=== PATIENT | female | born 1935 | race Caucasian/White ===

== ENCOUNTER 2016-10-04 16:52 | Emergency (ER) | payer MEDICARE, OTHER ==
[2016-10-04 17:29] VITALS: BP 160/90
--- NOTE | 2016-10-04 18:32 | RAD ---
Indication: Constipation. Flat and upright views of the abdomen demonstrates no free air. Air distended colon is noted. No evidence of bowel obstruction is noted. There appears to be fecal impaction in the rectum. No organomegaly is noted. There is evidence of a right ventriculoperitoneal shunt. IMPRESSION: Likely fecal impaction in the rectum.
[2016-10-04 18:42] LABS: Hematocrit 48 % (35-47); Hemoglobin 15.8 g/dl (12.0-16.0); Mean Corpuscular HGB Conc 33 g/dl (31-36); Mean Corpuscular Hemoglobin 29 pg (27-31); Mean Corpuscular Volume 87 fL (80-97); Mean Platelet Volume 12 um3 (7.4-10.4); Red Cell Distribution Width 14 % (10.5-15); White Blood Count 11.8 10^3/ul (3.5-10.8)
[2016-10-04 18:44] LABS: Add Diff/Slide Review? Slide Review Added; Comments Flag Yes
[2016-10-04 18:58] LABS: Albumin 4.3 g/dL (3.2-5.2); BUN/Creatinine Ratio 11.3 (8-20); Calcium 9.8 mg/dL (8.6-10.3); EGFR African American 70.5 (>60); EGFR Non-African American 54.8 (>60); Globulin 2.7 g/dL (2-4); Potassium 3.3 mmol/L (3.5-5.0); Total Bilirubin 0.5 mg/dL (0.2-1.0)
[2016-10-04 19:01] LABS: Troponin I 0.02 ng/mL (<0.04)
[2016-10-04 19:05] LABS: Platelet Morphology Large; RBC Morphology Normal (Normal)
[2016-10-04] MEDS ORDERED: NS 0.9% 1000 ML* 1,000 ML IV ONE (19:06)
[2016-10-04 19:38] LABS: TSH (Thyroid Stimulating Horm) 7.3 mcIU/mL (0.34-5.60)
[2016-10-04 19:58] LABS: Urine Bacteria 1+ (Absent); Urine Bilirubin Negative (Negative); Urine Glucose Negative (Negative); Urine Nitrite Positive (Negative)
[2016-10-04] MEDS ORDERED: Sulfamethoxazole/Trimeth IV(*) 160 MG in D5W 250 ML BAG* 250 ML IVPB ONE (22:00)
[2016-10-04] MEDS ORDERED: Magnesium CITRATE* 300 ML BTL PO ONE (22:45)
--- NOTE | 2016-10-04 22:48 | ED ---
Raad Joseph Alok, scribed for Buck Lantigua MD on 10/04/16 at 1749 . Altered Mental Status - HPI Summary HPI Summary: 81F presents the ED for increased confusion worse than baseline for the past few weeks, especially over the last week. 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 Pt also c/o constipation with abd pain on and off for the past week. Pts last BM was 3 days ago and small. Pt took 2 milkomax and one prune juice today. Pt has also been c/o of dizziness/ Pt is urine incontinent same as baseline. Pt denies abd pain at present and television maintenance man denies any fever. PMHx includes dementia. - History Of Current Complaint Chief Complaint: EDGeneral Stated Complaint: DEMENTIA PT-MORE CONFUSED/DIZZINESS Time Seen by Provider: 10/04/16 17:31 Hx Obtained From: Patient Onset/Duration: Still Present Timing: Constant, Lasting Weeks Severity Initially: Moderate Severity Currently: Moderate Character: Confusion Aggravating Factor(s): Nothing Alleviating Factor(s): Nothing - Allergies/Home Medications Allergies/Adverse Reactions: Allergies Allergy/AdvReac Type Severity Reaction Status Date / Time Amoxicillin [From Augmentin] Allergy Intermediate Hives Verified 09/21/14 11:47 Clavulanic Acid Allergy Intermediate Hives Verified 09/21/14 11:47 [From Augmentin] Ciprofloxacin [From Cipro] Allergy Mild Rash Verified 09/21/14 11:47 PMH/Surg Hx/FS Hx/Imm Hx Endocrine/Hematology History: Reports: Hx Anticoagulant Therapy Denies: Hx Diabetes, Hx Thyroid Disease Cardiovascular History: Reports: Hx Deep Vein Thrombosis, Hx Hypercholesterolemia, Hx Hypotension, Hx Hypertension, Hx Valvular Heart Disease , Other Cardiovascular Problems/Disorders - HEART MURMUR, DVT Denies: Hx Congestive Heart Failure, Hx Pacemaker/ICD Respiratory History: Reports: Hx Sleep Apnea - SHAMIR Denies: Hx Asthma, Hx Chronic Obstructive Pulmonary Disease (COPD) Comment Only: Other Respiratory Problems/Disorders - SLEEP APNEA GI History: Reports: Hx Gastroesophageal Reflux Disease, Other GI Disorders - reported episodes of diarrhea over the past week Denies: Hx Ulcer History: Denies: Hx Renal Disease Musculoskeletal History: Reports: Hx Arthritis, Hx Osteoporosis Comment Only: Hx Rheumatoid Arthritis - ARTHRITIS UNKNOWN TYPE Sensory History: Reports: Hx Contacts or Glasses Opthamlomology History: Reports: Hx Contacts or Glasses Neurological History: Reports: Hx Dementia, Other Neuro Impairments/Disorders - Hx of hydrocephalus Denies: Hx Migraine, Hx Seizures, Hx Transient Ischemic Attacks (TIA) Psychiatric History: Reports: Hx Anxiety, Hx Depression Denies: Hx Eating Disorder, Hx of Violent Episodes Against Others, Hx Substance Abuse - Surgical History Surgery Procedure, Year, and Place: WORD PROCESSOR SHUNT 2002 FOR HYDROCEPHALIS [facility]- PER DR COPE- PROGRAMMABLE SHUNT PER X-RAY SHUNT SERIES IN 2013. WORD PROCESSOR SHUNT REVISION 2004 [facility]. Cataract. Cholecystecomy. Appendectomy Hx Anesthesia Reactions: No Infectious Disease History: No Infectious Disease History: Reports: Hx Shingles - YRS AGO Denies: Hx Hepatitis, Hx Human Immunodeficiency Virus (HIV), Traveled Outside the in Last 30 Days - Social History Alcohol Use: None Substance Use Type: Reports: None Smoking Status (MU): Former Smoker Review of Systems Negative: Fever Positive: Abdominal Pain, Other - constipation Positive: incontinence - urinary (same as baseline) Neurological: Other - Dizziness Positive: Other - confusion (worse than baseline) All Other Systems Reviewed And Are Negative: Yes Physical Exam Triage Information Reviewed: Yes Vital Signs On Initial Exam: Initial Vitals Temp Pulse Resp BP Pulse Ox 97.8 F 80 20 160/90 100 10/04/16 17:25 10/04/16 17:25 10/04/16 17:25 10/04/16 17:25 10/04/16 17:25 Vital Signs Reviewed: Yes Appearance: Positive: Well-Appearing, No Pain Distress Skin: Positive: Warm, Skin Color Reflects Adequate Perfusion, Dry Head/Face: Positive: Normal Head/Face Inspection Eyes: Positive: Normal ENT: Positive: Other - dry mucous membranes Neck: Positive: Supple, Nontender Respiratory/Lung Sounds: Positive: Clear to Auscultation, Breath Sounds Present Cardiovascular: Positive: RRR Abdomen Description: Positive: Nontender, Soft Bowel Sounds: Positive: Hypoactive Musculoskeletal: Positive: Normal Neurological: Positive: Normal Psychiatric: Positive: Normal, Affect/Mood Appropriate Diagnostics - Vital Signs Vital Signs Temp Pulse Resp BP Pulse Ox 10/04/16 17:25 97.8 F 80 20 160/90 100 - Laboratory Lab Results: Lab Results 10/04/16 10/04/16 10/04/16 Range/Units 18:30 18:30 18:30 WBC 11.8 H (3.5-10.8) 10^3/ul RBC 5.50 H (4.0-5.4) 10^6/ul Hgb 15.8 (12.0-16.0) g/dl Hct 48 H (35-47) % MCV 87 (80-97) fL MCH 29 (27-31) pg MCHC 33 (31-36) g/dl RDW 14 (10.5-15) % Plt Count 118 L (150-450) 10^3/ul MPV 12 H (7.4-10.4) um3 Neut % (Auto) 71.4 (38-83) % Lymph % (Auto) 18.5 L (25-47) % [place] % (Auto) 6.6 (1-9) % Eos % (Auto) 2.1 (0-6) % Baso % (Auto) 1.4 (0-2) % Absolute Neuts (auto) 8.4 H (1.5-7.7) 10^3/ul Absolute Lymphs (auto) 2.2 (1.0-4.8) 10^3/ul Absolute Monos (auto) 0.8 (0-0.8) 10^3/ul Absolute Eos (auto) 0.2 (0-0.6) 10^3/ul Absolute Basos (auto) 0.2 (0-0.2) 10^3/ul Absolute Nucleated RBC 0.01 10^3/ul Nucleated RBC % 0.1 Platelet Morphology Large Normal RBC Morphology Normal (Normal) Sodium 140 (133-145) mmol/L Potassium 3.3 L (3.5-5.0) mmol/L Chloride 104 (101-111) mmol/L Carbon Dioxide 25 (22-32) mmol/L Anion Gap 11 (2-11) mmol/L BUN 11 (6-24) mg/dL Creatinine 0.97 H (0.51-0.95) mg/dL Est GFR ( Amer) 70.5 (>60) Est GFR (Non-Af Amer) 54.8 (>60) BUN/Creatinine Ratio 11.3 (8-20) Glucose 150 H (70-100) mg/dL Lactic Acid 2.9 H* (0.5-2.0) mmol/L Calcium 9.8 (8.6-10.3) mg/dL Total Bilirubin 0.50 (0.2-1.0) mg/dL AST 52 H (13-39) U/L ALT 49 (7-52) U/L Alkaline Phosphatase 46 (34-104) U/L Troponin I 0.02 (<0.04) ng/mL Total Protein 7.0 (6.4-8.9) g/dL Albumin 4.3 (3.2-5.2) g/dL Globulin 2.7 (2-4) g/dL Albumin/Globulin Ratio 1.6 (1-3) TSH 7.30 H (0.34-5.60) mcIU/mL Urine Color Urine Appearance Urine pH (5-9) Ur Specific [place] (1.010-1.030) Urine Protein (Negative) Urine Ketones (Negative) Urine Blood (Negative) Urine Nitrate (Negative) Urine Bilirubin (Negative) Urine Urobilinogen (Negative) Ur Leukocyte Esterase (Negative) Urine WBC (Auto) (Absent) Urine RBC (Auto) (Absent) Urine Bacteria (Absent) Urine Glucose (Negative) Urine Ascorbic Acid (Negative) 10/04/16 Range/Units 19:42 WBC (3.5-10.8) 10^3/ul RBC (4.0-5.4) 10^6/ul Hgb (12.0-16.0) g/dl Hct (35-47) % MCV (80-97) fL MCH (27-31) pg MCHC (31-36) g/dl RDW (10.5-15) % Plt Count (150-450) 10^3/ul MPV (7.4-10.4) um3 Neut % (Auto) (38-83) % Lymph % (Auto) (25-47) % [place] % (Auto) (1-9) % Eos % (Auto) (0-6) % Baso % (Auto) (0-2) % Absolute Neuts (auto) (1.5-7.7) 10^3/ul Absolute Lymphs (auto) (1.0-4.8) 10^3/ul Absolute Monos (auto) (0-0.8) 10^3/ul Absolute Eos (auto) (0-0.6) 10^3/ul Absolute Basos (auto) (0-0.2) 10^3/ul Absolute Nucleated RBC 10^3/ul Nucleated RBC % Platelet Morphology Normal RBC Morphology (Normal) Sodium (133-145) mmol/L Potassium (3.5-5.0) mmol/L Chloride (101-111) mmol/L Carbon Dioxide (22-32) mmol/L Anion Gap (2-11) mmol/L BUN (6-24) mg/dL Creatinine (0.51-0.95) mg/dL Est GFR ( Amer) (>60) Est GFR (Non-Af Amer) (>60) BUN/Creatinine Ratio (8-20) Glucose (70-100) mg/dL Lactic Acid (0.5-2.0) mmol/L Calcium (8.6-10.3) mg/dL Total Bilirubin (0.2-1.0) mg/dL AST (13-39) U/L ALT (7-52) U/L Alkaline Phosphatase (34-104) U/L Troponin I (<0.04) ng/mL Total Protein (6.4-8.9) g/dL Albumin (3.2-5.2) g/dL Globulin (2-4) g/dL Albumin/Globulin Ratio (1-3) TSH (0.34-5.60) mcIU/mL Urine Color Yellow Urine Appearance Cloudy Urine pH 7.0 (5-9) Ur Specific [place] 1.018 (1.010-1.030) Urine Protein Negative (Negative) Urine Ketones Negative (Negative) Urine Blood Negative (Negative) Urine Nitrate Positive H (Negative) Urine Bilirubin Negative (Negative) Urine Urobilinogen Negative (Negative) Ur Leukocyte Esterase 1+ H (Negative) Urine WBC (Auto) 3+(>20/hpf) H (Absent) Urine RBC (Auto) 2+(6-10/hpf) H (Absent) Urine Bacteria 1+ H (Absent) Urine Glucose Negative (Negative) Urine Ascorbic Acid * H (Negative) Result Diagrams: 10/04/16 18:30 10/04/16 18:30 Lab Statement: Any lab studies that have been ordered have been reviewed, and results considered in the medical decision making process. - Radiology Abd XRAY Xray Interpretation: Positive (See Comments) - IMPRESSION: Likely fecal impaction in the rectum. Radiology Interpretation Completed By: Radiologist - EKG 1942 Cardiac Rate: NL - 82 bpm EKG Rhythm: Sinus Rhythm Altered Mental Statu Course/Dx - Course Course Of Treatment: Ms. Juarez has been more confused in the last two weeks and is also constipated. She was found to have a UTI and is being treated for that with IV antibiotics and will be given a prescription and some Mag citrate to move her bowels. - Diagnoses Discharge Diagnoses: Constipation, UTI (urinary tract infection) Discharge - Discharge Plan Condition: Stable Disposition: HOME Prescriptions: Nitrofurantoin Monohyd Macro [Macrobid] 100 mg PO BID #10 cap Patient Education Materials: Urinary Tract Infection in Women (ED) Referrals: Antonette Beck MD [Primary Care Provider] - The documentation as recorded by the Raad clay Alok accurately reflects the service I personally performed and the decisions made by me, Buck Lantigua MD.
--- NOTE | 2016-10-06 09:39 | ED ---
Progress - Progress Note Progress Note: Pt's urine cx reveals e. coli 100,000 - started on macrobid. Will await sens. No change at this time. Course/Dx - Course Course Of Treatment: Ms. Juarez has been more confused in the last two weeks and is also constipated. She was found to have a UTI and is being treated for that with IV antibiotics and will be given a prescription and some Mag citrate to move her bowels. - Diagnoses Provider Diagnoses: Constipation, UTI (urinary tract infection)
--- NOTE | 2016-10-07 14:32 | PN ---
Progress Note - Progress Note Date of Service: 10/04/16 Note: Patient was treated with Macrobid due to preliminary culture results showing > 100,00 of e coli. Final culture results show susceptibility to Macrobid. No further change or treatment needed at this time.
== END 2016-10-05 00:53 | disposition home or self-care (01) ==
LOC: ED 16:52
DX: N39.0 Urinary tract infection, site not specified (principal); K59.00 Constipation, unspecified; M06.9 Rheumatoid arthritis, unspecified; K21.9 Gastro-esophageal reflux disease without esophagitis; M81.0 Age-related osteoporosis without current pathological fracture; F03.90 Unspecified dementia, unspecified severity, without behavioral disturbance, psychotic disturbance, mood disturbance, and anxiety; Z79.01 Long term (current) use of anticoagulants; B96.20 Unspecified Escherichia coli [E. coli] as the cause of diseases classified elsewhere; Z86.718 Personal history of other venous thrombosis and embolism; F32.9 Major depressive disorder, single episode, unspecified; Z87.891 Personal history of nicotine dependence
CPT/HCPCS: 36415; 74000; 80053; 81003; 81015; 83605; 84443; 84484; 85025; 87077; 87086; 87186; 93005; 96360; 96374; 99283; A9270-GY

== ENCOUNTER → 2016-12-24 12:54 | Emergency (ER) | payer MEDICARE, OTHER ==
[~2016-12-24 12:54] MED LIST: NS 0.9% 1000 ML* 1,000 ML IV ONE; Potassium Chlor TAB* 20 MEQ TAB.ER PO ONE
[2016-12-24 13:05] VITALS: BP 161/110
--- NOTE | 2016-12-24 14:33 | RAD ---
HISTORY: The iris pain COMPARISONS: December 23, 2010 TECHNIQUE: Multiple transverse and longitudinal ultrasound images were obtained of the left lower extremity from the level of the common femoral vein inferiorly through to the infrapopliteal veins using grayscale, color Doppler, and spectral Doppler imaging with and without compression and with augmentation. Comparison images were obtained of the contralateral common femoral vein. FINDINGS: VEINS: There is linear echogenic material consistent with chronic recanalized thrombus within the left common femoral vein, profunda femoris, femoral vein, and popliteal vein, persistent but improved when compared to December 23, 2010. Similar findings are noted within the greater saphenous vein.. There are no findings to suggest acute deep vein thrombosis. SOFT TISSUES: Unremarkable. OTHER FINDINGS: None. 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
[2016-12-24 15:52] LABS: Hematocrit 46 % (35-47); Hemoglobin 15.1 g/dl (12.0-16.0); Mean Corpuscular HGB Conc 33 g/dl (31-36); Mean Corpuscular Hemoglobin 29 pg (27-31); Mean Corpuscular Volume 87 fL (80-97); Red Blood Count 5.27 10^6/ul (4.0-5.4); Red Cell Distribution Width 15 % (10.5-15); White Blood Count 9.4 10^3/ul (3.5-10.8)
[2016-12-24 15:53] LABS: Add Diff/Slide Review? Slide Review Added; Comments Flag Yes
[2016-12-24 16:06] LABS: ALT 51 U/L (7-52); Albumin 4.2 g/dL (3.2-5.2); Alkaline Phosphatase 39 U/L (34-104); BUN/Creatinine Ratio 9.1 (8-20); Blood Urea Nitrogen 9 mg/dL (6-24); C Reactive Protein 8.71 mg/L (< 5.00); CO2 Carbon Dioxide 28 mmol/L (22-32); Calcium 9.5 mg/dL (8.6-10.3); Chloride 103 mmol/L (101-111); EGFR African American 68.9 (>60); EGFR Non-African American 53.6 (>60); Globulin 2.8 g/dL (2-4); Glucose 104 mg/dL (70-100); Lipase < 10 U/L (11.0-82.0); Sodium 140 mmol/L (133-145)
[2016-12-24 16:11] LABS: Anion Gap 9 mmol/L (2-11)
[2016-12-24 16:34] LABS: Mean Platelet Volume 11 um3 (7.4-10.4)
--- NOTE | 2016-12-24 16:35 | RAD ---
INDICATION: Pain left groin. COMPARISON: Comparison is made with a prior CT of the abdomen and pelvis from January 23, 2013. TECHNIQUE: A CT scan of the abdomen and pelvis was performed without intravenous or oral contrast. Contiguous axial sections were obtained from the lung bases through the symphysis pubis. Images were reconstructed in the coronal and sagittal planes. FINDINGS: There is mild dependent bilateral lower lobe subsegmental atelectasis. No pleural effusion is present. The liver and spleen are normal in size. The liver is decreased in attenuation consistent with fatty infiltration. No significant focal hepatic abnormality is seen on this noncontrast study. The patient is status post cholecystectomy. There is fatty infiltration of the pancreas which otherwise appears unremarkable. The adrenal glands appear within normal limits. The kidneys appear slightly small in size. No hydronephrosis is seen. No renal calculi are noted. There is a cyst arising from the superior pole of the left kidney measuring 4.8 cm in size. The aorta is normal in caliber with moderate calcific plaque present. No significant enlarged retroperitoneal lymph nodes are seen. The stomach, small and large bowel appear nondistended. The patient is status post appendectomy by history. There is moderate sigmoid diverticulosis. There is no evidence for diverticulitis or colitis. There is a small periumbilical hernia containing fat. The distal portion of a ventricular peritoneal shunt catheter is noted in the right lower quadrant. The uterus is anteverted with areas of calcification suggestive of fibroids. There is a small amount of free intraperitoneal fluid present in the dependent portion of the pelvis. No free intraperitoneal air is seen. There is grade II anterior spondylolisthesis at the L5-S1 level. There are chronic compression fractures of the T10 and T11 vertebral bodies. IMPRESSION: 1. SMALL AMOUNT OF FREE INTRAPERITONEAL FLUID IN THE PELVIS. 2. HEPATIC STEATOSIS.
[2016-12-24 17:21] LABS: Troponin I 0.02 ng/mL (<0.04)
--- NOTE | 2016-12-24 18:22 | ED ---
Sofia Joseph Thomas, scribed for Ernie Oropeza MD on 12/24/16 at 1321 . Abdominal Pain/Female - HPI Summary HPI Summary: The pt is a 81 y/o F BIBA and c/o L-sided groin pain that began this AM. The pain is constant. The pain is rated 2/10. It does not radiate. The pain is aggravated by going over bumps in the ambulance. It is alleviated by internal rotation of her left foot. The patient has treated the pain with nothing [employer]. Pt denies constipation and urinary symptoms. She denies any falls in the last month. She reports prior episodes of this pain the past that spontaneously resolved. PMHx: HTN, DVT, dementia. PSHx: foot surgery, appendectomy. SHx: no smoking, no drinking. FHx: DM. - History of Current Complaint Chief Complaint: EDExtremityLower Stated Complaint: GROIN PAIN Time Seen by Provider: 12/24/16 13:05 Hx Obtained From: Patient Onset/Duration: Lasting Hours - pain with onset this AM, Still Present Timing: Constant Severity Currently: Moderate Pain Intensity: 0 Pain Scale Used: 0-10 Numeric Location: Groin - L-sided Radiates: No Aggravating Factor(s): Other: - Bumps in the ambulance Alleviating Factor(s): Other: - Internal rotation of left foot Associated Signs and Symptoms: Negative: Constipation, Urinary Symptoms Allergies/Adverse Reactions: Allergies Allergy/AdvReac Type Severity Reaction Status Date / Time Amoxicillin [From Augmentin] Allergy Intermediate Hives Verified 09/21/14 11:47 Clavulanic Acid Allergy Intermediate Hives Verified 09/21/14 11:47 [From Augmentin] Ciprofloxacin [From Cipro] Allergy Mild Rash Verified 09/21/14 11:47 PMH/Surg Hx/FS Hx/Imm Hx Previously Healthy: No Endocrine/Hematology History: Reports: Hx Anticoagulant Therapy Denies: Hx Diabetes, Hx Thyroid Disease Cardiovascular History: Reports: Hx Deep Vein Thrombosis, Hx Hypercholesterolemia, Hx Hypotension, Hx Hypertension, Hx Valvular Heart Disease , Other Cardiovascular Problems/Disorders - HEART MURMUR, DVT Denies: Hx Congestive Heart Failure, Hx Pacemaker/ICD Respiratory History: Reports: Hx Sleep Apnea - SHAMIR Denies: Hx Asthma, Hx Chronic Obstructive Pulmonary Disease (COPD) Comment Only: Other Respiratory Problems/Disorders - SLEEP APNEA GI History: Reports: Hx Gastroesophageal Reflux Disease, Other GI Disorders - reported episodes of diarrhea over the past week Denies: Hx Ulcer History: Denies: Hx Renal Disease Musculoskeletal History: Reports: Hx Arthritis, Hx Osteoporosis Comment Only: Hx Rheumatoid Arthritis - ARTHRITIS UNKNOWN TYPE Sensory History: Reports: Hx Contacts or Glasses Opthamlomology History: Reports: Hx Contacts or Glasses Neurological History: Reports: Hx Dementia, Other Neuro Impairments/Disorders - Hx of hydrocephalus Denies: Hx Migraine, Hx Seizures, Hx Transient Ischemic Attacks (TIA) Psychiatric History: Reports: Hx Anxiety, Hx Depression Denies: Hx Eating Disorder, Hx of Violent Episodes Against Others, Hx Substance Abuse - Surgical History Surgery Procedure, Year, and Place: 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 HEAD OF COMMISSION DEPARTMENT SHUNT REVISION 2004 [facility]. Cataract. Cholecystecomy. Appendectomy Hx Anesthesia Reactions: No Infectious Disease History: No Infectious Disease History: Reports: Hx Shingles - YRS AGO Denies: Hx Hepatitis, Hx Human Immunodeficiency Virus (HIV), Traveled Outside the in Last 30 Days - Family History Known Family History: Positive: Hypertension - Social History Alcohol Use: None Substance Use Type: Reports: None Smoking Status (MU): Former Smoker Review of Systems Negative: Fever Positive: Other - L-sided groin pain onset this AM; NEGATIVE: constipation Positive: no symptoms reported All Other Systems Reviewed And Are Negative: Yes Physical Exam Triage Information Reviewed: Yes Vital Signs On Initial Exam: Initial Vitals Temp Pulse Resp BP Pulse Ox 96.6 F 74 13 161/110 100 12/24/16 13:00 12/24/16 13:00 12/24/16 13:00 12/24/16 13:00 12/24/16 13:00 Vital Signs Reviewed: Yes Appearance: Positive: Well-Appearing, No Pain Distress Skin: Positive: Skin Color Reflects Adequate Perfusion Head/Face: Positive: Normal Head/Face Inspection Eyes: Positive: EOMI ENT: Positive: Normal ENT inspection Neck: Positive: Nontender Respiratory/Lung Sounds: Positive: Clear to Auscultation, Breath Sounds Present Cardiovascular: Positive: RRR. Negative: Murmur Abdomen Description: Positive: Nontender, Other: - no hernia, no mass, notenderness left or right groin area. No redness, no mass.. Negative: Distended Bowel Sounds: Positive: Present Musculoskeletal: Positive: Strength/ROM Intact Neurological: Positive: Sensory/Motor Intact, Alert, Oriented to Person Place, Time, CN Intact II-III Psychiatric: Positive: Normal - [place] Coma Scale Best Eye Response: 4 - Spontaneous Best Motor Response: 6 - Obeys Commands Best Verbal Response: 5 - Oriented Diagnostics - Vital Signs Vital Signs Temp Pulse Resp BP Pulse Ox 12/24/16 13:00 96.6 F 74 13 161/110 100 - Laboratory Result Diagrams: 12/24/16 15:35 12/24/16 15:35 Lab Statement: Any lab studies that have been ordered have been reviewed, and results considered in the medical decision making process. - CT CT Abd/Pel CT Interpretation: No Acute Changes - CT Abd/Pel shows 1. SMALL AMOUNT OF FREE INTRAPERITONEAL FLUID IN THE PELVIS. 2. HEPATIC STEATOSIS. ED Physician has read this report and agrees. CT Interpretation Completed By: Radiologist - EKG 14:14 Cardiac Rate: NL - 69 BPM EKG Interpretation: No STEMI. - Additional Comments Diagnostic Additional Comments: US LLE. Interpreted by radiologist. 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 ED Physician has read this report and agrees. Re-Evaluation - Re-Evaluation First Eval Re-Evaluation Time: 15:01 Change: Unchanged Comment: Patient refuses all lab draws, drinking contrast, ivs, iv contrast. She seems alert and rational and able to make decisions at this point. Will get CT without contrast. she overall does not seem to be uncomfortable or in distress. Second Eval Re-Evaluation Time: 18:13 Change: Improved Comment: she states she is comfortable and would like to go home. Abdominal Pain Fem Course/Dx - Course Course Of Treatment: The pt is a 81 y/o F BIBA and c/o L-sided groin pain that began this AM. Pt denies constipation, urinary symptoms, or any falls in the last month. Bloodwork was obtained and it shows CRP 8.71. EKG shows no STEMI. 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 CT Abd/Pel shows 1. SMALL AMOUNT OF FREE INTRAPERITONEAL FLUID IN THE PELVIS. 2. HEPATIC STEATOSIS. ED Physician has read this report and agrees. Her work up is unremakable for acute findings and her exam unremarkable. DC to home good condition. - Diagnoses Provider Diagnoses: Left groin pain, Hypertension Discharge - Discharge Plan Condition: Good Disposition: HOME Patient Education Materials: Abdominal Pain (ED), Groin Pain (ED), Hypertension (ED) Referrals: Antonette Beck MD [Primary Care Provider] - The documentation as recorded by the Sofia clay Thomas accurately reflects the service I personally performed and the decisions made by , Ernie Oropeza MD.
== END | disposition home or self-care (01) ==
LOC: ED 12:54
DX: R10.32 Left lower quadrant pain (principal); I10 Essential (primary) hypertension; Z86.718 Personal history of other venous thrombosis and embolism; Z79.01 Long term (current) use of anticoagulants; E78.00 Pure hypercholesterolemia, unspecified; M06.9 Rheumatoid arthritis, unspecified; Z87.891 Personal history of nicotine dependence
CPT/HCPCS: 36415; 74176; 80053; 83605; 83690; 84484; 85025; 85610; 86140; 87040; 93005; 96360; 99283

== ENCOUNTER → 2016-12-26 08:19 | Emergency (ER) | payer MEDICARE, OTHER ==
[~2016-12-26 08:19] MED LIST changes: +Lidocaine PATCH 5%* 1 PATCH ONE; +Lidocaine PATCH 5%* 1 PATCH TRANSDERM SCH; +Lidocaine Patch REMOVE* 1 NOTE MISC SCH; -NS 0.9% 1000 ML* 1,000 ML IV ONE; -Potassium Chlor TAB* 20 MEQ TAB.ER PO ONE
--- NOTE | 2016-12-26 10:02 | ED ---
Lower Extremity - HPI Summary HPI Summary: Pt here w/ Lt knee pain since yesterday, last night. Feels mostly over medial aspect. Constant, aching. Has tried "copious amounts of tylenol" w/o relief. Worse w/ movement and touch over affected area. 2 days ago was here w/ similar issues - reported groin pain and LE pain. No c/o swelling or distal pain beyond knee. Had U/S neg for acute DVT (has chronic findings) as well as CT ab/pelvis neg for acute pathology. Denies numbness, tingling, weakness, coolness of extremity, fever, chills, N/V, diarrhea, CP, SOB, BERNABE, visual change. She is eating and drinking well. Pt denies h/o gout, arthritis - chart indicates arthritis. PCP called - pt was seen in her office after being seen here 2 days ago. She was started on amlodipine for BP which continues to be elevated today however pt is asx. Her BP also lowers when she relaxes. PCP also reports pt has advanced dementia, poor historian and low pain threshold (nurse confirms pt was crying in pain w/ BP assessment yesterday - this was fine for pt today). PCP started pt on macrobid for possible early diverticulitis (note: CT scan reveals diverticulosis w/o -itits. Pt allergic to augmentin and cipro). PCP also confirms med list including: *xarelto 15mg daily *donepezil *memantine *quetiapine *omperazole *venlafaxine *Vit D *Alprazolam (PRN) *acetaminophen (PRN) - History of Current Complaint Chief Complaint: EDExtremityLower Stated Complaint: LEFT LEG PAIN Time Seen by Provider: 12/26/16 09:33 Hx Obtained From: Patient, Family/Stator Plate Washer - PCP Pain Intensity: 9 - Allergies/Home Medications Allergies/Adverse Reactions: Allergies Allergy/AdvReac Type Severity Reaction Status Date / Time Amoxicillin [From Augmentin] Allergy Intermediate Hives Verified 09/21/14 11:47 Clavulanic Acid Allergy Intermediate Hives Verified 09/21/14 11:47 [From Augmentin] Ciprofloxacin [From Cipro] Allergy Mild Rash Verified 09/21/14 11:47 Home Medications: Home Medications Acetaminophen TAB* [Tylenol TAB*] 650 mg PO Q4H PRN 12/26/16 [History Confirmed 12/26/16] Alprazolam 0.25 mg PO BID 12/26/16 [History Confirmed 12/26/16] Amlodipine Besylate [Norvasc 5 mg tab] 5 mg PO DAILY 12/26/16 [History Confirmed 12/26/16] Cholecalciferol [Vitamin D] 1,000 unit PO DAILY 12/26/16 [History Confirmed 10/05] Omeprazole 40 mg PO DAILY 12/26/16 [History Confirmed 12/26/16] QUEtiapine TAB* [SEROquel TAB*] 25 mg PO DAILY PRN 12/26/16 [History Confirmed 12/26/16] Rivaroxaban TAB(*) [Xarelto 15 mg(*)] 15 mg PO DAILY 12/26/16 [History Confirmed 12/26/16] Senna TAB* [Senokot TAB*] 1 tab PO DAILY 12/26/16 [History Confirmed 12/26/16] PMH/Surg Hx/FS Hx/Imm Hx Previously Healthy: Yes Endocrine/Hematology History: Reports: Hx Anticoagulant Therapy - xarelto Denies: Hx Diabetes, Hx Thyroid Disease Cardiovascular History: Reports: Hx Deep Vein Thrombosis, Hx Hypercholesterolemia, Hx Hypotension, Hx Hypertension - amlodipine, Hx Valvular Heart Disease, Other Cardiovascular Problems/Disorders - HEART MURMUR Denies: Hx Congestive Heart Failure, Hx Pacemaker/ICD Respiratory History: Reports: Hx Sleep Apnea - SHAMIR Denies: Hx Asthma, Hx Chronic Obstructive Pulmonary Disease (COPD) GI History: Reports: Hx Gastroesophageal Reflux Disease - omeprazole, Other GI Disorders - h/o diarrhea Denies: Hx Ulcer History: Denies: Hx Renal Disease Musculoskeletal History: Reports: Hx Arthritis, Hx Osteoporosis Sensory History: Reports: Hx Contacts or Glasses Opthamlomology History: Reports: Hx Contacts or Glasses Neurological History: Reports: Hx Dementia, Other Neuro Impairments/Disorders - Hx of hydrocephalus Denies: Hx Migraine, Hx Seizures, Hx Transient Ischemic Attacks (TIA) Psychiatric History: Reports: Hx Anxiety, Hx Depression - on meds Denies: Hx Eating Disorder, Hx of Violent Episodes Against Others, Hx Substance Abuse - Surgical History Surgery Procedure, Year, and Place: REGISTERED NURSE CARDIOVASCULAR ICU SHUNT 2002 FOR HYDROCEPHALIS [facility]- PER DR COPE- PROGRAMMABLE SHUNT PER X-RAY SHUNT SERIES IN 2013. REGISTERED NURSE CARDIOVASCULAR ICU SHUNT REVISION 2004 [facility]. Cataract. Cholecystecomy. Appendectomy Hx Anesthesia Reactions: No Infectious Disease History: Yes Infectious Disease History: Reports: Hx Shingles - YRS AGO Denies: Hx Hepatitis, Hx Human Immunodeficiency Virus (HIV), Traveled Outside the [place] in Last 30 Days - Family History Known Family History: Positive: Hypertension - Social History Occupation: Retired [facility]: [facility] Alcohol Use: None Hx Substance Use: No Substance Use Type: Reports: None Hx Tobacco Use: Yes Smoking Status (MU): Former Smoker Review of Systems Constitutional: Negative Negative: Fever, Chills, Fatigue Eyes: Negative Negative: Photophobia, Blurred Vision, Diplopia ENT: Negative Cardiovascular: Negative Negative: Palpitations, Chest Pain Respiratory: Negative Negative: Shortness Of Breath, Cough Gastrointestinal: Negative Negative: Abdominal Pain, Vomiting, Diarrhea, Nausea Negative: burning, dysuria, discharge, frequency, flank pain Musculoskeletal: Other - see HPI Skin: Negative Neurological: Negative Psychological: Normal All Other Systems Reviewed And Are Negative: Yes Physical Exam Triage Information Reviewed: Yes Vital Signs On Initial Exam: Initial Vitals Temp Pulse Resp BP Pulse Ox 97.2 F 74 15 154/89 99 12/26/16 08:20 12/26/16 08:20 12/26/16 08:20 12/26/16 08:20 12/26/16 08:20 Vital Signs Reviewed: Yes Appearance: Positive: Well-Appearing, No Pain Distress - lying on stretcher w/ Lt knee flexed and Lt hip in frog position, Well-Nourished Skin: Positive: Warm, Dry - mild erythema of Lt anterior tibial region compared to Rt (appears to be superficial capillary changes) - no fever to touch, no edema Eyes: Positive: EOMI ENT: Positive: Hearing grossly normal. Negative: Pharynx normal - oral mucosa dry, Nasal congestion, Nasal drainage Respiratory/Lung Sounds: Positive: Clear to Auscultation, Breath Sounds Present. Negative: Rales, Rhonchi, Stridor, Wheezes Cardiovascular: Positive: RRR, Pulses are Symmetrical in both Upper and Lower Extremities, Murmur, Other - no bruit appreciated upon ab auscultation, no palpable ab mass nor pulsatile mass observed; femoral pulses +2 equal B/L, S1 - murmur, S2. Negative: Leg Edema Left - (-) Néstor's, Leg Edema Right Abdomen Description: Positive: Nontender, No Organomegaly, Soft, Other: - groin NTTP. Negative: Pulsatile Mass Bowel Sounds: Positive: Present Musculoskeletal: Positive: Strength/ROM Intact, Pain @ - Lt knee flexion but is able to do so; TTP over Lt pes anserine Neurological: Positive: Normal, Sensory/Motor Intact, CN Intact II-III Psychiatric: Positive: Normal - pleasant, calm, cooperative; appears to be responding appropriately to stimuli; organized thoughts - [place] Coma Scale Coma Scale Total: 14 Diagnostics - Vital Signs Vital Signs Temp Pulse Resp BP Pulse Ox 12/26/16 09:30 178/149 12/26/16 09:26 79 97 12/26/16 09:08 148/52 12/26/16 09:00 75 99 12/26/16 08:30 68 223/85 99 12/26/16 08:26 72 97 12/26/16 08:25 154/89 12/26/16 08:20 97.2 F 74 15 154/89 99 - Laboratory Lab Statement: Any lab studies that have been ordered have been reviewed, and results considered in the medical decision making process. Lower Extremity Course/Dx - Course Course Of Treatment: Pt presents w/ Lt knee pain - focal area of point tenderness over pes anserine. Mild TTP over medial, proximal calf up bordering popliteal space - U/S unchanged chronic DVT findings from 12/24 - clinical findings low for acute DVT as well. XR reveals OA and osteopenia - suspect OA flair vs. pes anserine pain/inflammation. Advise NSAID's w/ food for pain and f/ u w/ PCP. NOTE: advise continued monitoring of BP. - Diagnoses Differential Diagnosis/HQI/PQRI: Positive: Arthritis, Bursitis, Dislocation, DVT , Fracture (Closed), Sprain, Strain, Tendonitis Provider Diagnoses: Left knee pain, Osteoarthritis of left knee Discharge - Discharge Plan Condition: Stable Disposition: HOME Patient Education Materials: Osteoarthritis (ED), Knee Pain (ED) Referrals: Antonette Beck MD [Primary Care Provider] - Additional Instructions: Rest, ice alternating with heat, elevation, NSAID's with food for pain Follow-up with PCP this week if pain persists. *If you develop chest pain, shortness of breath, fever, vomiting, joint swelling , calf swelling, abnormal bleeding, return to ED
[2016-12-26 10:05] VITALS: BP 184/67
--- NOTE | 2016-12-26 10:52 | RAD ---
HISTORY: Left medial knee pain COMPARISONS: March 21, 2014 VIEWS: 4, Frontal, lateral, axial, and oblique views of the left knee FINDINGS: BONE DENSITY: There is diffuse osteopenia. BONES: There is no displaced fracture. JOINTS: There is moderate tricompartmental osteoarthritis. There is no suprapatellar joint effusion or lipohemarthrosis. ALIGNMENT: There is no dislocation. SOFT TISSUES: Unremarkable. OTHER FINDINGS: None. IMPRESSION: OSTEOPENIA. OSTEOARTHRITIS. NO ACUTE OSSEOUS INJURY. IF SYMPTOMS PERSIST, RECOMMEND REPEAT IMAGING.
--- NOTE | 2016-12-26 10:57 | RAD ---
HISTORY: Left groin pain COMPARISONS: September 21, 2014 VIEWS: 3, Frontal view of the pelvis with frontal and frog-leg views of the left hip FINDINGS: BONE DENSITY: There is diffuse osteopenia. BONES: The patient is status post internal fixation of the left femoral neck. There is no hardware failure or osteolysis. There is no displaced fracture.. JOINTS: There is moderate osteoporosis of the hips bilaterally. ALIGNMENT: There is no dislocation. SOFT TISSUES: Unremarkable. OTHER FINDINGS: A SCREEN TENDER HELPER shunt tubing tip is noted. IMPRESSION: 1. OSTEOPENIA. 2. OSTEOARTHRITIS. 3. STATUS POST INTERNAL FIXATION OF LEFT FEMUR. 4. NO ACUTE OSSEOUS INJURY. IF SYMPTOMS PERSIST, RECOMMEND REPEAT IMAGING
--- NOTE | 2016-12-26 11:59 | RAD ---
HISTORY: Left lower extremity pain COMPARISONS: December 24, 2016 TECHNIQUE: Multiple transverse and longitudinal ultrasound images were obtained of the left lower extremity from the level of the common femoral vein inferiorly through to the infrapopliteal veins using grayscale, color Doppler, and spectral Doppler imaging with and without compression and with augmentation. Comparison images were obtained of the contralateral common femoral vein. FINDINGS: VEINS: Again noted is chronic appearing nonocclusive thrombus within the left common femoral vein, profunda femoris vein, femoral vein, and popliteal vein, and with the greater saphenous vein. SOFT TISSUES: Unremarkable. OTHER FINDINGS: None. IMPRESSION: AGAIN NOTED IS CHRONIC APPEARING NONOCCLUSIVE THROMBUS OF THE LEFT LOWER EXTREMITY SIMILAR TO DECEMBER 24, 2016
== END | disposition home or self-care (01) ==
LOC: ED 08:19
DX: M25.562 Pain in left knee (principal); M17.12 Unilateral primary osteoarthritis, left knee; Z79.01 Long term (current) use of anticoagulants; Z87.891 Personal history of nicotine dependence
CPT/HCPCS: 99284; A9270-GY

== ENCOUNTER 2017-09-23 08:31 | Emergency (ER) | payer MEDICARE, OTHER ==
[2017-09-23] MEDS ORDERED: traMADol TAB* 50 MG PO ONE (08:49)
--- NOTE | 2017-09-23 09:30 | RAD ---
HISTORY: hip pain with groin COMPARISONS: December 26, 2016 VIEWS: 3, Frontal view of the pelvis with frontal and frog-leg views of the left hip FINDINGS: BONE DENSITY: There is diffuse osteopenia. BONES: The patient is status post internal fixation of the proximal left femur. There is no hardware failure or osteolysis. JOINTS: There is moderate osteoarthritis of the hips bilaterally. ALIGNMENT: There is no dislocation. SOFT TISSUES: Unremarkable. OTHER FINDINGS: Degenerative changes noted of the spine. SPRAY GUN STRIPER shunt tubing is noted in the right lower quadrant. IMPRESSION: 1. STATUS POST INTERNAL FIXATION OF THE PROXIMAL LEFT FEMUR. 2. OSTEOARTHRITIS. 3. NO ACUTE OSSEOUS INJURY. IF SYMPTOMS PERSIST, RECOMMEND REPEAT IMAGING
--- NOTE | 2017-09-23 09:46 | RAD ---
HISTORY: pain in l calf COMPARISONS: December 26, 2016 TECHNIQUE: Multiple transverse and longitudinal ultrasound images were obtained of the left lower extremity from the level of the common femoral vein inferiorly through to the infrapopliteal veins using grayscale, color Doppler, and spectral Doppler imaging with and without compression and with augmentation. Comparison images were obtained of the contralateral common femoral vein. FINDINGS: VEINS: Again noted is chronic appearing nonocclusive thrombus within the common femoral vein extending inferiorly through to the popliteal vein, similar to the previous examination. SOFT TISSUES: Unremarkable. OTHER FINDINGS: None. IMPRESSION: STABLE CHRONIC APPEARING NONOCCLUSIVE THROMBUS OF THE LEFT LOWER EXTREMITY SIMILAR TO SEPTEMBER 23, 2017
[2017-09-23] MEDS ORDERED: Diltiazem TAB* 30 MG PO ONE (10:15)
--- NOTE | 2017-09-23 11:06 | ED ---
Lower Extremity - HPI Summary HPI Summary: Patient is an 82-year-old female presenting to the ED with left groin pain extending down into the calf. Denies any falls or injuries. Lives at residential. Patient states symptoms have been present for several weeks but have been worsening. She remains ambulatory with her walker at baseline. History of dementia. Denies any fevers to her knowledge. Has been taking Tylenol without relief. PCP is Dr. Beck. - History of Current Complaint Chief Complaint: EDExtremityLower Stated Complaint: LT LEG PAIN Time Seen by Provider: 09/23/17 08:42 Hx Obtained From: Patient Mechanism Of Injury: Unknown Onset of Pain: Days Onset/Duration: Weeks Severity Initially: Moderate Severity Currently: Moderate Pain Intensity: 9 Pain Scale Used: 0-10 Numeric Timing: Constant Location: Is Discrete @ - left groin radiating to the left calf Alleviating Factor(s): Rest Able to Bear Weight: No - Risk Factors Gout Risk Factors: Negative DVT Risk Factors: Negative Septic Arthritis Risk Factor: Negative - Allergies/Home Medications Allergies/Adverse Reactions: Allergies Allergy/AdvReac Type Severity Reaction Status Date / Time amoxicillin Allergy Intermediate Hives Verified 09/23/17 08:46 clavulanic acid Allergy Intermediate Hives Verified 09/23/17 08:46 ciprofloxacin Allergy Mild Rash Verified 09/23/17 08:46 Home Medications: Home Medications ALPRAZolam TAB* [Xanax TAB*] 0.25 mg PO BID PRN 09/23/17 [History Confirmed 08/06] Acetaminophen TAB* [Tylenol TAB*] 325 mg PO Q4H PRN 09/23/17 [History Confirmed 09/23/17] Chlorhexidine Gluconate [Hibiclens] 4 % TOPICAL DAILY PRN 09/23/17 [History Confirmed 09/23/17] Cholecalciferol TAB* [Vitamin D TAB*] 50,000 unit PO MONTHLY 09/23/17 [History Confirmed 09/23/17] Diclofenac 1% GEL (NF) [Voltaren 1% GEL (NF)] 1 applic TOPICAL BID PRN 09/23/17 [History Confirmed 09/23/17] Donepezil TAB* [Aricept 5 MG TAB*] 10 mg PO DAILY 09/23/17 [History Confirmed ] Gabapentin CAP(*) [Neurontin 100 mg CAP(*)] 200 mg PO QAM 07/05/18 [History Confirmed 09/23/17] Gabapentin CAP(*) [Neurontin 300 CAP(*)] 300 mg PO BEDTIME 09/23/17 [History Confirmed 09/23/17] Mupirocin 2% OINT* [Bactroban 2 % Oint*] 1 applic TOPICAL BID 09/23/17 [History Confirmed 09/23/17] Omeprazole CAP* [Prilosec CAP* 20 MG] 40 mg PO DAILY 09/23/17 [History Confirmed 09/23/17] QUEtiapine TAB* [Seroquel 25 MG TAB*] 25 mg PO DAILY PRN 09/23/17 [History Confirmed 09/23/17] QUEtiapine TAB* [Seroquel 25 MG TAB*] 50 mg PO QPM 09/23/17 [History Confirmed 09/23/17] Rivaroxaban TAB(*) [Xarelto 15 mg(*)] 15 mg PO DAILY 09/23/17 [History Confirmed 09/23/17] Senna TAB* [Senokot TAB*] 1 tab PO DAILY 09/23/17 [History Confirmed 09/23/17] Venlafaxine EXT RELEASE CAP* [Effexor Xr CAP*] 75 mg PO DAILY 09/23/17 [History Confirmed 09/23/17] amLODIPine TAB* [Norvasc 5 mg TAB*] 10 mg PO DAILY 09/23/17 [History Confirmed 09/23/17] PMH/Surg Hx/FS Hx/Imm Hx Previously Healthy: Yes - is on Endocrine/Hematology History: Reports: Hx Anticoagulant Therapy - xarelto Denies: Hx Diabetes, Hx Thyroid Disease Cardiovascular History: Reports: Hx Deep Vein Thrombosis, Hx Hypercholesterolemia, Hx Hypotension, Hx Hypertension - amlodipine, Hx Valvular Heart Disease, Other Cardiovascular Problems/Disorders - HEART MURMUR Denies: Hx Congestive Heart Failure, Hx Pacemaker/ICD Respiratory History: Reports: Hx Sleep Apnea - SHAMIR Denies: Hx Asthma, Hx Chronic Obstructive Pulmonary Disease (COPD) Comment Only: Other Respiratory Problems/Disorders - SLEEP APNEA GI History: Reports: Hx Gastroesophageal Reflux Disease - omeprazole, Other GI Disorders - h/o diarrhea Denies: Hx Ulcer History: Denies: Hx Renal Disease Musculoskeletal History: Reports: Hx Arthritis, Hx Osteoporosis Sensory History: Reports: Hx Contacts or Glasses Opthamlomology History: Reports: Hx Contacts or Glasses Neurological History: Reports: Hx Dementia, Other Neuro Impairments/Disorders - Hx of hydrocephalus Denies: Hx Migraine, Hx Seizures, Hx Transient Ischemic Attacks (TIA) Psychiatric History: Reports: Hx Anxiety, Hx Depression Denies: Hx Eating Disorder, Hx of Violent Episodes Against Others, Hx Substance Abuse - Surgical History Surgery Procedure, Year, and Place: 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 POLICE OFFICER CRIME PREVENTION SHUNT REVISION 2004 [facility]. Cataract. Cholecystecomy. Appendectomy Hx Anesthesia Reactions: No - Immunization History Hx Pertussis Vaccination: No Immunizations Up to Date: Unable to Obtain/Confirm Infectious Disease History: No Infectious Disease History: Reports: Hx Shingles - YRS AGO Denies: Hx Hepatitis, Hx Human Immunodeficiency Virus (HIV), Traveled Outside the [place] in Last 30 Days - Family History Known Family History: Positive: Hypertension - Social History Occupation: Unemployed Lives: [facility] Alcohol Use: None Hx Substance Use: No Substance Use Type: Reports: None Hx Tobacco Use: Yes Smoking Status (MU): Never Smoked Tobacco Review of Systems Negative: Fever, Chills, Fatigue Negative: Palpitations, Chest Pain Negative: Shortness Of Breath, Cough Genitourinary: Negative Positive: no symptoms reported, see HPI Positive: Arthralgia - left groin pain, Myalgia Neurological: Negative Psychological: Normal All Other Systems Reviewed And Are Negative: Yes Physical Exam Triage Information Reviewed: Yes Vital Signs On Initial Exam: Initial Vitals Temp Pulse Resp BP Pulse Ox 97.5 F 74 18 197/126 100 09/23/17 08:34 09/23/17 08:34 09/23/17 08:34 09/23/17 08:34 09/23/17 08:34 Completion Of Physical Exam Limited Due To: Altered Mental Status - dementia at baseline Appearance: Positive: Well-Appearing, Well-Nourished Skin: Positive: Warm, Skin Color Reflects Adequate Perfusion Head/Face: Positive: Normal Head/Face Inspection Eyes: Positive: EOMI, IGNACIO, Conjunctiva Clear Neck: Positive: Supple, No Lymphadenopathy Respiratory/Lung Sounds: Positive: Clear to Auscultation, Breath Sounds Present Cardiovascular: Positive: RRR, Pulses are Symmetrical in both Upper and Lower Extremities Musculoskeletal: Positive: Pain @ - left groin pain Neurological: Positive: Other - not oriented to time, oriented to person and place Psychiatric: Positive: Affect/Mood Appropriate Diagnostics - Vital Signs Vital Signs Temp Pulse Resp BP Pulse Ox 09/23/17 10:23 212/93 09/23/17 10:10 76 205/90 100 09/23/17 10:04 80 206/95 100 09/23/17 10:02 81 197/100 100 09/23/17 09:40 76 167/101 100 09/23/17 09:11 66 188/84 100 09/23/17 08:40 73 197/126 100 09/23/17 08:34 97.5 F 74 18 197/126 100 - Laboratory Lab Statement: Any lab studies that have been ordered have been reviewed, and results considered in the medical decision making process. Lower Extremity Course/Dx - Course Course Of Treatment: Patient is evaluated for left groin pain. Hip S2 views and pelvis obtained which shows a status post internal fixation of the proximal left femur. Osteoarthritis. I discussed results with patient. She states she has never had a surgery to the left leg or hip. Dementia at baseline. Venous Doppler due to calf pain which shows a stable chronic appearing nonocclusive thrombus of the left lower extremity similar to December 26, 2016. Patient was unaware of this she states. I have discussed the case with her PCP Dr. Beck who suggests a lot of this is behavioral issues as well as dementia and has been complaining of this for a long time. She has also intermittently sedated with narcotics and is usually requesting these when she comes to the ED. She was given tramadol while in the ED. I have log rolled the patient and she denies any pain with this. She remains ambulatory with her walker. For these reasons, we will not perform a CT of the pelvis at this time. She'll be discharged back to the residential and will return for any worsening or changing symptoms. She'll follow-up with Dr. Beck as scheduled. - Diagnoses Provider Diagnoses: Groin pain Discharge - Sign-Out/Discharge Documenting (check all that apply): Discharge/Admit/Transfer Signing out patient TO: Antonette Beck - Discussed case prior to discharge - Discharge Plan Condition: Stable Disposition: HOME Patient Education Materials: Groin Pain (ED) Referrals: Antonette Beck MD [Primary Care Provider] - Additional Instructions: Please follow up with your PCP, Dr. Beck as scheduled - Billing Disposition and Condition Condition: STABLE Disposition: Home
[2017-09-23 12:00] VITALS: BP 183/86
== END 2017-09-23 11:21 | disposition home or self-care (01) ==
LOC: ED 08:31
DX: R10.32 Left lower quadrant pain (principal); I82.512 Chronic embolism and thrombosis of left femoral vein; Z79.01 Long term (current) use of anticoagulants; M16.12 Unilateral primary osteoarthritis, left hip; F03.90 Unspecified dementia, unspecified severity, without behavioral disturbance, psychotic disturbance, mood disturbance, and anxiety; E78.00 Pure hypercholesterolemia, unspecified; I10 Essential (primary) hypertension; I95.9 Hypotension, unspecified; G47.30 Sleep apnea, unspecified; K21.9 Gastro-esophageal reflux disease without esophagitis; F41.9 Anxiety disorder, unspecified; F32.9 Major depressive disorder, single episode, unspecified; Z88.1 Allergy status to other antibiotic agents; Z88.0 Allergy status to penicillin; Z82.49 Family history of ischemic heart disease and other diseases of the circulatory system
CPT/HCPCS: 99283; A9270-GY

== ENCOUNTER 2018-11-17 18:35 | Emergency (ER) | payer MEDICARE, OTHER ==
--- NOTE | 2018-11-17 19:23 | ED ---
Adult Trauma - HPI Summary HPI Summary: Patient from [place] complains of unwitnessed fall 2 days ago with subsequent right side pain and right side lower back pain. Also complains of right-sided back spasms starting today at 10 AM, occurring every 10-15 minutes. Patient has history dementia, does not remember fall. Family states patient has been ambulatory, complaining of mild pain in her back until today. Patient is full code. Denies fever, cough, sore throat, CP, SOB, N/V/D, abdominal pain, change in urine, change in BM. 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 Patient on Xarelto. 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 Mechanism of Injury: Fall Ambulatory at the Scene: Yes Loss of Consciousness: no loss of consciousness Onset/Duration: Started Days Ago Onset of Pain: Immediate Onset Severity: Mild Current Severity: Moderate Pain Intensity: 5 Pain Scale Used: 0-10 Numeric Location: Other Character: Dull, Aching, Sharp Aggravating Factor(s): Movement, Deep Breaths Alleviating Factor(s): Rest Associated Signs & Symptoms: Positive: Negative Related History: Anticoagulants - Allergy/Home Medications Allergies/Adverse Reactions: Allergies Allergy/AdvReac Type Severity Reaction Status Date / Time amoxicillin Allergy Intermediate Hives Verified 09/23/17 08:46 clavulanic acid Allergy Intermediate Hives Verified 09/23/17 08:46 ciprofloxacin Allergy Mild Rash Verified 09/23/17 08:46 Home Medications: Home Medications Cyanocobalamin TAB* [Vitamin B12 TAB*] 1,000 mcg PO DAILY 11/17/18 [History Confirmed 11/17/18] Gabapentin CAP(*) [Neurontin 100 mg CAP(*)] 200 mg PO QAM 11/17/18 [History Confirmed 11/17/18] Gabapentin CAP(*) [Neurontin 100 mg CAP(*)] 400 mg PO BEDTIME 11/17/18 [History Confirmed 11/17/18] Loperamide CAP* [Imodium CAP*] 2 mg PO Q2HR PRN 11/17/18 [History Confirmed ] Omeprazole CAP (NF) [Prilosec CAP* 20 MG] 20 mg PO DAILY 11/17/18 [History Confirmed 11/17/18] Rivaroxaban TAB(*) [Xarelto 20 mg] 20 mg PO DAILY 11/17/18 [History Confirmed ] Simethicone TAB* [Mylicon TAB*] 80 mg PO AC PRN 11/17/18 [History Confirmed ] PMH/Surg Hx/FS Hx/Imm Hx Endocrine/Hematology History: Reports: Hx Anticoagulant Therapy - xarelto Denies: Hx Diabetes, Hx Thyroid Disease Cardiovascular History: Reports: Hx Deep Vein Thrombosis, Hx Hypercholesterolemia, Hx Hypotension, Hx Hypertension - amlodipine, Hx Valvular Heart Disease, Other Cardiovascular Problems/Disorders - HEART MURMUR Denies: Hx Congestive Heart Failure, Hx Pacemaker/ICD Respiratory History: Reports: Hx Sleep Apnea - SHAMIR Denies: Hx Asthma, Hx Chronic Obstructive Pulmonary Disease (COPD) Comment Only: Other Respiratory Problems/Disorders - SLEEP APNEA GI History: Reports: Hx Gastroesophageal Reflux Disease - omeprazole, Other GI Disorders - h/o diarrhea Denies: Hx Ulcer History: Denies: Hx Renal Disease Musculoskeletal History: Reports: Hx Arthritis, Hx Osteoporosis Sensory History: Reports: Hx Contacts or Glasses Opthamlomology History: Reports: Hx Contacts or Glasses Neurological History: Reports: Hx Dementia, Other Neuro Impairments/Disorders - Hx of hydrocephalus Denies: Hx Migraine, Hx Seizures, Hx Transient Ischemic Attacks (TIA) Psychiatric History: Reports: Hx Anxiety, Hx Depression Denies: Hx Eating Disorder, Hx of Violent Episodes Against Others, Hx Substance Abuse - Surgical History Surgery Procedure, Year, and Place: GUIDE DOG TRAINER SHUNT 2002 FOR HYDROCEPHALIS [facility]- PER DR COPE- PROGRAMMABLE SHUNT PER X-RAY SHUNT SERIES IN 2013. GUIDE DOG TRAINER SHUNT REVISION 2004 [facility]. Cataract. Cholecystecomy. Appendectomy Hx Anesthesia Reactions: No Infectious Disease History: No Infectious Disease History: Reports: Hx Shingles - YRS AGO Denies: Hx Hepatitis, Hx Human Immunodeficiency Virus (HIV), Traveled Outside the [place] in Last 30 Days - Family History Known Family History: Positive: Hypertension - Social History Alcohol Use: None Hx Substance Use: No Substance Use Type: Reports: None Hx Tobacco Use: Yes Smoking Status (MU): Never Smoked Tobacco Review of Systems Constitutional: Negative Eyes: Negative ENT: Negative Cardiovascular: Negative Respiratory: Negative Gastrointestinal: Negative Genitourinary: Negative Musculoskeletal: Other Skin: Negative Neurological: Negative Psychological: Normal All Other Systems Reviewed And Are Negative: Yes Physical Exam - Summary Physical Exam Summary: Neuro exam normal. Patient having recurrent back spasms. Pain with palpation of the right side. No trauma noted to mouth, face, head. Full range of motion of jaw and neck. No pain with palpation of neck, spine.No pain with palpation of left side, bilateral hips. Patient flexes and extends bilateral hips and lower extremities freely. Triage Information Reviewed: Yes Vital Signs On Initial Exam: Initial Vitals Temp Pulse Resp BP Pulse Ox 97.5 F 68 16 155/82 98 11/17/18 18:41 11/17/18 18:41 11/17/18 18:41 11/17/18 18:41 11/17/18 18:41 Vital Signs Reviewed: Yes Appearance: Positive: Well-Appearing Skin: Positive: Warm Head/Face: Positive: Normal Head/Face Inspection Eyes: Positive: Normal ENT: Positive: Normal ENT inspection Dental: Negative: Dental Fracture @, Bleeding Neck: Positive: Supple Respiratory/Lung Sounds: Positive: Clear to Auscultation Cardiovascular: Positive: Normal Abdomen Description: Positive: Nontender Musculoskeletal: Positive: Normal Neurological: Positive: Normal Psychiatric: Positive: Normal AVPU Assessment: Alert - Leonid Coma Scale Best Eye Response: 4 - Spontaneous Best Motor Response: 6 - Obeys Commands Best Verbal Response: 5 - Oriented Coma Scale Total: 15 Diagnostics - Vital Signs Vital Signs Temp Pulse Resp BP Pulse Ox 11/17/18 18:41 97.5 F 68 16 155/82 98 - Laboratory Result Diagrams: 11/17/18 19:29 11/17/18 19:29 Lab Statement: Any lab studies that have been ordered have been reviewed, and results considered in the medical decision making process. Adult Trauma Course/Dx - Course Course Of Treatment: Patient from [place] complains of unwitnessed fall 2 days ago with subsequent right side pain and right side lower back pain. Also complains of right-sided back spasms starting today at 10 AM, occurring every 10 -15 minutes. Patient has history dementia, does not remember fall. Family states patient has been ambulatory, complaining of mild pain in her back until today. Patient is full code. Denies fever, cough, sore throat, CP, SOB, N/V/D , abdominal pain, change in urine, change in BM. 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 Patient on Xarelto. Vital signs within normal limits. CT brain unremarkable. CT cervical spine unremarkable. CT chest abdomen and pelvis with IV contrast positive for ninth and 10th rib fractures on right side, small pleural effusion on right, possible acute mild compression of T10 and T11. Potassium 4.4. Magnesium 1.8. Patient given 20 MEQ potassium , magnesium 1 mg. Muscle spasms controlled with Ativan 0.5mg IV 2. Patient tensed up and screamed with every blood pressure reading, likely causing elevated blood pressure readings. Patient did not like arm being squeezed. Normal blood pressure when taken with manual. Discussed patient with Dr. Florian who recommended discharge back to [place]. - Diagnoses Provider Diagnoses: Fall, Muscle spasm, Fracture, ribs, Hypokalemia, Hypomagnesemia Discharge ED - Sign-Out/Discharge Documenting (check all that apply): Patient Departure Patient Received Moderate/Deep Sedation with Procedure: No - Discharge Plan Condition: Stable Disposition: INTERMEDIATE CARE FACILITY Prescriptions: LORazepam [Ativan] 0.5 mg PO TID 2 Days #6 tablet MDD 3 tabs Patient Education Materials: Rib Fracture (ED), Hypokalemia (ED), Hypomagnesemia (ED), Muscle Spasm (ED) Referrals: Antonette Beck MD [Primary Care Provider] - Additional Instructions: Take Ativan as directed for muscle spasm. Incentive spirometry to protect against diminished breathing due to rib fractures. Follow-up with primary care doctor Return to the ED for any new or worsening symptoms. - Billing Disposition and Condition Condition: STABLE Disposition: Intermediate Care Facility
[2018-11-17 19:37] LABS: ABS Basophils 0.1 10^3/ul (0-0.2); ABS Eosinophils 0.2 10^3/ul (0-0.6); ABS Lymphocytes 1.1 10^3/ul (1.0-4.8); ABS Monocytes 0.7 10^3/ul (0-0.8); ABS Neutrophils 8.6 10^3/ul (1.5-7.7); Eosinophil % 1.7 %; Hematocrit 44 % (35-47); Hemoglobin 15.1 g/dL (12.0-16.0); Lymphocyte % 10.5 %; Mean Corpuscular HGB Conc 34 g/dL (31-36); Mean Corpuscular Hemoglobin 28 pg (27-31); Mean Corpuscular Volume 83 fL (80-97); Mean Platelet Volume 10.6 fL (7.4-10.4); Platelet Count 149 10^3/uL (150-450); Red Blood Count 5.33 10^6 /uL (3.70-4.87); Red Cell Distribution Width 15 % (10-15); White Blood Count 10.7 10^3/uL (3.5-10.8)
[2018-11-17] MEDS ORDERED: Cyclobenzaprine TAB* 10 MG PO ONE (19:48)
[2018-11-17 19:51] LABS: INR 1.62 (0.82-1.09)
[2018-11-17] MEDS ORDERED: Lorazepam PYXIS KEY PRN ×3 (19:53→22:43)
[2018-11-17] MEDS ORDERED: LORazepam INJ* 2 MG/ML 1 ML VIAL IV PUSH ONE ×2 (19:53→21:12)
[2018-11-17 19:54] LABS: ALT 28 U/L (7-52); AST 17 U/L (13-39); Albumin 4.6 g/dL (3.2-5.2); Albumin/Globulin Ratio 1.8 (1-3); Alkaline Phosphatase 63 U/L (34-104); Anion Gap 11 mmol/L (2-11); BUN/Creatinine Ratio 13.3 (8-20); Blood Urea Nitrogen 15 mg/dL (6-24); C Reactive Protein 25.13 mg/L (<8.01); CO2 Carbon Dioxide 24 mmol/L (22-32); Calcium 9.9 mg/dL (8.6-10.3); Chloride 103 mmol/L (101-111); EGFR African American 55.4 (>60); EGFR Non-African American 45.8 (>60); Globulin 2.5 g/dL (2-4); Glucose 155 mg/dL (70-100); Magnesium 1.8 mg/dL (1.9-2.7); Potassium 3.4 mmol/L (3.5-5.0); Sodium 138 mmol/L (135-145); Total Protein 7.1 g/dL (6.4-8.9)
[2018-11-17] MEDS ORDERED: Iodixanol* (CONTRAST) 320 MG/ML 100 ML SDV IV ONE (19:57)
[2018-11-17] MEDS ORDERED: NS 0.9% 500 ML* 500 ML IV SCH (20:00)
[2018-11-17] MEDS ORDERED: Lorazepam PYXIS KEY ONE (20:06)
[2018-11-17 20:13] LABS: Alcohol < 10 mg/dL (<10)
[2018-11-17 20:28] LABS: TSH (Thyroid Stimulating Horm) 5.17 mcIU/mL (0.34-5.60)
[2018-11-17] MEDS ORDERED: Potassium Chlor TAB* 20 MEQ TAB.ER PO ONE (22:17)
[2018-11-17] MEDS ORDERED: Magnesium Sulfate 1 GM IV* 1 GM/100 ML BAG IV ONE (22:18)
[2018-11-17] MEDS ORDERED: LORazepam INJ* 2 MG/ML 1 ML VIAL IM ONE (22:43)
[2018-11-17 23:03] VITALS: BP 150/78
== END 2018-11-18 01:09 ==
LOC: ED 18:35
DX: S22.41XA Multiple fractures of ribs, right side, initial encounter for closed fracture (principal); E87.6 Hypokalemia; E83.42 Hypomagnesemia; M62.838 Other muscle spasm; W19.XXXA Unspecified fall, initial encounter; Y92.9 Unspecified place or not applicable; E78.00 Pure hypercholesterolemia, unspecified; I10 Essential (primary) hypertension; K21.9 Gastro-esophageal reflux disease without esophagitis; F41.9 Anxiety disorder, unspecified; F03.90 Unspecified dementia, unspecified severity, without behavioral disturbance, psychotic disturbance, mood disturbance, and anxiety; F32.9 Major depressive disorder, single episode, unspecified; Z79.01 Long term (current) use of anticoagulants; Z79.899 Other long term (current) drug therapy; Z88.1 Allergy status to other antibiotic agents; Z88.0 Allergy status to penicillin
CPT/HCPCS: 36415; 70450; 71260; 72125; 74177; 80053; 80320; 83605; 83735; 84443; 84484; 85025; 85610; 86140; 93005; 96365; 96372; 96375; 96376; 99285; A9270-GY; G0480; J2060; J3475; Q9967

== ENCOUNTER 2020-08-29 11:01 | Inpatient (IN) ==
[2020-08-29 13:27] LABS: Hematocrit 42 % (35-47); Mean Corpuscular HGB Conc 34 g/dL (31-36); Mean Corpuscular Hemoglobin 28 pg (27-31); Mean Corpuscular Volume 82 fL (80-97); Mean Platelet Volume 11.5 fL (7.4-10.4); Platelet Count 156 10^3/uL (150-450); Red Blood Count 5.06 10^6 /uL (3.70-4.87); Red Cell Distribution Width 15 % (10-15); White Blood Count 10.4 10^3/uL (3.5-10.8)
[2020-08-29 13:57] LABS: ABS Basophils 0.1 10^3/ul (0-0.2); ABS Eosinophils 0.2 10^3/ul (0-0.6); ABS Lymphocytes 1.3 10^3/ul (1.0-4.8); ABS Monocytes 0.7 10^3/ul (0-0.8); ABS Neutrophils 8.1 10^3/ul (1.5-7.7); Eosinophil % 1.6 %; Lymphocyte % 12.3 %
[2020-08-29 14:03] LABS: Albumin 4.5 g/dL (3.2-5.2); Albumin/Globulin Ratio 1.6 (1-3); C Reactive Protein 3.64 mg/L (<8.01); Calcium 9.8 mg/dL (8.6-10.3); EGFR African American 62.9 (>60); Globulin 2.9 g/dL (2-4); Potassium 3.8 mmol/L (3.5-5.0); Total Bilirubin 0.4 mg/dL (0.2-1.0); Total Protein 7.4 g/dL (6.4-8.9)
[2020-08-29 14:46] LABS: Activated Partial Thrombo Time 30.6 seconds (26.0-38.0); INR 1.29 (0.82-1.09)
[2020-08-29] MEDS ORDERED: Al Hydrox/Mg Hydrox/Simet LIQ 30 ML UDC PO PRN (15:29)
[2020-08-29] MEDS ORDERED: Cholecalciferol (VIT D3) 50,000 UNIT CAP (NF) PO SCH (16:00)
[2020-08-29] MEDS ORDERED: hydrALAZINE 20 mg/ml 1 ML Vial IV IV SLOW PU ONE (16:29)
[2020-08-29] MEDS ORDERED: Heparin 5000 UNITS/ML 1 mL VIAL SUBCUT SCH (22:00)
[2020-08-30 05:06] LABS: Hematocrit 41 % (35-47); Hemoglobin 13.5 g/dL (12.0-16.0); Mean Corpuscular HGB Conc 33 g/dL (31-36); Mean Corpuscular Hemoglobin 27 pg (27-31); Mean Corpuscular Volume 82 fL (80-97); Mean Platelet Volume 11.3 fL (7.4-10.4); Platelet Count 145 10^3/uL (150-450); Red Blood Count 4.99 10^6 /uL (3.70-4.87); Red Cell Distribution Width 15 % (10-15)
[2020-08-30 05:07] LABS: ABS Basophils 0.1 10^3/ul (0-0.2); ABS Eosinophils 0.2 10^3/ul (0-0.6); ABS Lymphocytes 1.7 10^3/ul (1.0-4.8); ABS Monocytes 0.8 10^3/ul (0-0.8); ABS Neutrophils 8.2 10^3/ul (1.5-7.7); Eosinophil % 1.5 %; Lymphocyte % 15.6 %
[2020-08-30 05:24] LABS: Calcium 9.5 mg/dL (8.6-10.3); EGFR African American 69.2 (>60); EGFR Non-African American 57.2 (>60); Potassium 3.4 mmol/L (3.5-5.0)
[2020-08-30 09:05] LABS: Magnesium 1.9 mg/dL (1.9-2.7)
[2020-08-30] MEDS: Venlafaxine XR 75 mg PO SCH (09:27)
[2020-08-30] MEDS: KCL 20 MEQ/100 ML IVPREMIX 20 MEQ/100 ML BAG IV SCH ×3 (10:16→19:44)
[2020-08-31 06:06] LABS: ABS Basophils 0.1 10^3/ul (0-0.2); ABS Eosinophils 0.3 10^3/ul (0-0.6); ABS Lymphocytes 1.9 10^3/ul (1.0-4.8); ABS Monocytes 0.8 10^3/ul (0-0.8); ABS Neutrophils 6.2 10^3/ul (1.5-7.7); Eosinophil % 3.1 %; Hematocrit 39 % (35-47); Hemoglobin 12.9 g/dL (12.0-16.0); Lymphocyte % 20.8 %; Mean Corpuscular HGB Conc 33 g/dL (31-36); Mean Corpuscular Hemoglobin 27 pg (27-31); Mean Corpuscular Volume 82 fL (80-97); Mean Platelet Volume 11.1 fL (7.4-10.4); Platelet Count 147 10^3/uL (150-450); Red Blood Count 4.74 10^6 /uL (3.70-4.87); Red Cell Distribution Width 15 % (10-15); White Blood Count 9.3 10^3/uL (3.5-10.8)
[2020-08-31 06:21] LABS: Calcium 9.4 mg/dL (8.6-10.3); EGFR African American 73.7 (>60); EGFR Non-African American 60.9 (>60)
[2020-08-31] MEDS: Venlafaxine XR 75 mg PO SCH (09:43)
[2020-09-01] MEDS: Venlafaxine XR 75 mg PO SCH (08:54)
[2020-09-01 11:42] LABS: Urine Appearance Cloudy; Urine Bilirubin Negative (Negative); Urine Blood 1+ (Negative); Urine Color Yellow; Urine Glucose Negative (Negative); Urine Ketones Negative (Negative); Urine Nitrite Positive (Negative); Urine Protein Negative (Negative); Urine Specific Gravity 1.015 (1.002-1.030); Urine Urobilinogen Negative (Negative)
[2020-09-01 11:55] LABS: Urine Bacteria 3+ (Absent); Urine Red Blood Cell Trace(0-2/hpf) (Absent); Urine Squamous Epithelial Cell Present (Absent); Urine White Blood Cell 3+(>20/hpf) (Absent)
[2020-09-02] MEDS: Venlafaxine XR 75 mg PO SCH (08:49)
[2020-09-02] MEDS: cefTRIAXone 1 gm/50 mL NS BAG 1 GM/50 ML BAG IVPB SCH (16:08)
[2020-09-02] MEDS ORDERED: Nitrofurantoin (monohydrate/macrocrystals) 100 mg CAP PO SCH (21:00)
[2020-09-03 06:57] LABS: Calcium 9.4 mg/dL (8.6-10.3); EGFR African American 58.2 (>60); EGFR Non-African American 48.1 (>60); Potassium 3.6 mmol/L (3.5-5.0)
[2020-09-03] MEDS: Venlafaxine XR 75 mg PO SCH (08:33)
[2020-09-03] MEDS: cefTRIAXone 1 gm/50 mL NS BAG 1 GM/50 ML BAG IVPB SCH (08:45)
[2020-09-04 09:12] VITALS: BP 139/53
[2020-09-04] MEDS: Venlafaxine XR 75 mg PO SCH (09:28)
[2020-09-19] MEDS ORDERED: Cholecalciferol (VIT D3) 50,000 UNIT CAP (NF) PO SCH (09:00)
== END 2020-09-04 10:40 | disposition home health service (06) | DRG 690 ==
LOC: MEDTELE 11:01 → ED 11:01 → MEDTELE 19:47
PROVIDERS: ADMIT Internal Medicine; ATTEND Internal Medicine

== ENCOUNTER 2020-12-11 13:39 | Inpatient (IN) ==
[2020-12-11] MEDS ORDERED: NS 0.9% 1000 ml BAG 1,000 ML IV ONE (13:56)
[2020-12-11 14:10] LABS: Urine Appearance Cloudy; Urine Bilirubin Negative (Negative); Urine Blood Negative (Negative); Urine Color Amber; Urine Glucose Negative (Negative); Urine Ketones Negative (Negative); Urine Nitrite Negative (Negative); Urine Protein 1+(30 mg/dL) (Negative); Urine Specific Gravity 1.021 (1.002-1.030); Urine Urobilinogen Negative (Negative)
[2020-12-11 14:18] LABS: Hematocrit 38 % (35-47); Hemoglobin 12.4 g/dL (12.0-16.0); Mean Corpuscular HGB Conc 33 g/dL (31-36); Mean Corpuscular Hemoglobin 27 pg (27-31); Mean Corpuscular Volume 81 fL (80-97); Mean Platelet Volume 11.3 fL (7.4-10.4); Platelet Count 125 10^3/uL (150-450); Red Blood Count 4.67 10^6 /uL (3.70-4.87); Red Cell Distribution Width 17 % (10-15)
[2020-12-11 14:33] LABS: Urine Bacteria 1+ (Absent); Urine Red Blood Cell 1+(3-5/hpf) (Absent); Urine Squamous Epithelial Cell Present (Absent); Urine White Blood Cell Trace(0-5/hpf) (Absent)
[2020-12-11 14:35] LABS: ALT 10 U/L (7-52); Albumin/Globulin Ratio 1.5 (1-3); Alkaline Phosphatase 39 U/L (35-149); Blood Urea Nitrogen 15 mg/dL (6-24); CO2 Carbon Dioxide 24 mmol/L (22-32); Calcium 9.3 mg/dL (8.6-10.3); Chloride 104 mmol/L (101-111); EGFR Non-African American 41.3 (>60); Globulin 2.6 g/dL (2-4); Glucose 138 mg/dL (70-100); Sodium 136 mmol/L (135-145); Total Protein 6.6 g/dL (6.4-8.9)
[2020-12-11 14:36] LABS: Troponin I 0.01 ng/mL (<0.03)
[2020-12-11 15:00] LABS: Rapid COVID-19 Molecular Undetected (Undetected)
[2020-12-11 15:24] LABS: PCO2 Arterial 36 mmHg (35-45); PO2 Arterial 63 mmHg (80-100)
[2020-12-11 15:49] LABS: Anion Gap 8 mmol/L (2-11)
[2020-12-11 16:31] LABS: Magnesium 1.7 mg/dL (1.9-2.7); Potassium Redraw 3.6 mmol/L (3.5-5.0)
[2020-12-11] MEDS ORDERED: Magnesium Sulfate 2 gm BAG 2 GM/50 ML BAG IVPB ONE (16:40)
[2020-12-11 19:35] LABS: Anisocytosis 1+
[2020-12-11 19:36] LABS: ABS Eosinophils 0.7 10^3/ul (0-0.6); ABS Lymphocytes 0.9 10^3/ul (1.0-4.8); ABS Monocytes 1.2 10^3/ul (0-0.8); ABS Neutrophils 8.2 10^3/ul (1.5-7.7); Eosinophil % 6.8 %; Lymphocyte % 7.7 %
[2020-12-12 05:34] LABS: Hematocrit 34 % (35-47); Hemoglobin 11.5 g/dL (12.0-16.0); Mean Corpuscular HGB Conc 34 g/dL (31-36); Mean Corpuscular Hemoglobin 27 pg (27-31); Mean Corpuscular Volume 80 fL (80-97); Red Blood Count 4.29 10^6 /uL (3.70-4.87); Red Cell Distribution Width 16 % (10-15); White Blood Count 8.7 10^3/uL (3.5-10.8)
[2020-12-12 05:49] LABS: Calcium 8.3 mg/dL (8.6-10.3); EGFR African American 83.3 (>60); EGFR Non-African American 68.8 (>60); Potassium 3.2 mmol/L (3.5-5.0)
[2020-12-12 06:00] LABS: ABS Eosinophils 0.8 10^3/ul (0-0.6); ABS Lymphocytes 1.4 10^3/ul (1.0-4.8); ABS Monocytes 0.8 10^3/ul (0-0.8); ABS Neutrophils 5.6 10^3/ul (1.5-7.7); Eosinophil % 9.5 %; Large Platelets Present; Lymphocyte % 16.6 %; Mean Platelet Volume 10.8 fL (7.4-10.4); Platelet Count 94 10^3/uL (150-450)
[2020-12-12] MEDS: Potassium Chlor 20 meq TAB.ER PO SCH ×2 (11:25→12:19)
[2020-12-13 09:52] LABS: Hematocrit 37 % (35-47); Hemoglobin 12.5 g/dL (12.0-16.0); Mean Corpuscular HGB Conc 34 g/dL (31-36); Mean Corpuscular Hemoglobin 27 pg (27-31); Mean Corpuscular Volume 80 fL (80-97); Mean Platelet Volume 11.5 fL (7.4-10.4); Platelet Count 115 10^3/uL (150-450); Red Cell Distribution Width 16 % (10-15)
[2020-12-13 10:05] LABS: Anion Gap 7 mmol/L (2-11); Blood Urea Nitrogen 10 mg/dL (6-24); CO2 Carbon Dioxide 25 mmol/L (22-32); Calcium 9.1 mg/dL (8.6-10.3); Chloride 104 mmol/L (101-111); Creatine Kinase 38 U/L (10-223); EGFR African American 79.8 (>60); EGFR Non-African American 65.9 (>60); Glucose 165 mg/dL (70-100); Magnesium 1.8 mg/dL (1.9-2.7); Phosphorus 3.1 mg/dL (2.5-5.0); Potassium 4.4 mmol/L (3.5-5.0); Sodium 136 mmol/L (135-145)
[2020-12-13 10:42] LABS: TSH Ultra Thyroid Stim Horm 3.12 mcIU/mL (0.34-5.60)
[2020-12-13 10:51] LABS: Vitamin B12 > 1450 pg/mL (180-914)
[2020-12-13 14:30] LABS: ABS Basophils 0.1 10^3/ul (0-0.2); ABS Eosinophils 0.9 10^3/ul (0-0.6); ABS Lymphocytes 1.4 10^3/ul (1.0-4.8); ABS Monocytes 0.5 10^3/ul (0-0.8); ABS Neutrophils 4.2 10^3/ul (1.5-7.7); Eosinophil % 12.2 %; Lymphocyte % 20.6 %
[2020-12-13 14:38] LABS: Large Platelets Present
[2020-12-15 06:40] LABS: Calcium 9.4 mg/dL (8.6-10.3); EGFR African American 64.2 (>60); EGFR Non-African American 53.1 (>60); Magnesium 1.8 mg/dL (1.9-2.7); Potassium 4.2 mmol/L (3.5-5.0)
[2020-12-16 07:54] VITALS: BP 150/74
[2020-12-16 09:18] LABS: Rapid COVID-19 Molecular Undetected (Undetected)
== END 2020-12-16 11:03 | DRG 884 ==
LOC: ED 13:39 → MEDTELE 13:39 → OBSVTOIN 17:23 → SUATTDRO 17:23
PROVIDERS: ADMIT Internal Medicine; ATTEND Internal Medicine

== ENCOUNTER 2022-09-13 09:42 | Observation (INO) ==
[2022-09-13] MEDS ORDERED: oxyCODONE/Acetamin 5/325 mg TAB PO ONE (14:43)
[2022-09-13 21:01] LABS: Hematocrit 40.5 % (35-45); Hemoglobin 13.7 g/dL (11.5-14.3); Mean Corpuscular Hemoglobin 29.4 pg (27-33); Mean Corpuscular Hgb Conc 33.7 g/dL (31-36); Mean Corpuscular Volume 87.3 fL (80-97); Red Blood Count 4.64 10^6/uL (3.63-4.92); Red Cell Distribution Width 13.7 % (12-17); White Blood Count 8.8 10^3/uL (3.8-11.8)
[2022-09-13 21:02] LABS: ABS Basophils 0.1 10^3/uL (0.0-0.1); ABS Eosinophils 0.3 10^3/uL (0.0-0.5); ABS Lymphocytes 1.9 10^3/uL (1.0-4.8); ABS Monocytes 0.8 10^3/uL (0.0-0.9); ABS Neutrophils 5.6 10^3/uL (1.5-7.6); Eosinophil % 3.2 %; Lymphocyte % 21.9 %; Nucleated Red Blood Cells % 0.1 /100 WBC (0.0-0.4)
[2022-09-13 21:10] LABS: Albumin 3.9 g/dL (3.2-5.2); Albumin/Globulin Ratio 1.4 (1-3); Calcium 9.4 mg/dL (8.6-10.3); Creatinine, Serum 1.18 mg/dL (0.51-0.95); Globulin 2.7 g/dL (2-4); Potassium 4.5 mmol/L (3.5-5.0); Total Bilirubin 0.5 mg/dL (0.2-1.0); Total Protein 6.6 g/dL (6.4-8.9); eGFR CKD-EPI 44.4 (>60)
[2022-09-13 21:28] LABS: Mean Platelet Volume 10.8 fL (7.5-11.2); Platelet Count 181 10^3/uL (150-450)
[2022-09-13] MEDS ORDERED: Ondansetron 4 mg VIAL 2 MG/ML 2 ml VIAL IV PRN (22:19)
[2022-09-13] MEDS ORDERED: Morphine 2 MG/ML SYRINGE IV PRN (22:27)
[2022-09-13] MEDS ORDERED: Acetaminophen IV 1 GM/100ML 1,000 MG/100 ML BAG IV ONE (22:27)
[2022-09-13] MEDS ORDERED: oxyCODONE/Acetamin 5/325 mg TAB PO PRN (22:28)
[2022-09-14 07:21] LABS: Albumin 3.7 g/dL (3.2-5.2); Albumin/Globulin Ratio 1.5 (1-3); Calcium 9.1 mg/dL (8.6-10.3); Creatinine, Serum 1.16 mg/dL (0.51-0.95); Globulin 2.5 g/dL (2-4); Potassium 4.3 mmol/L (3.5-5.0); Total Bilirubin 0.5 mg/dL (0.2-1.0); Total Protein 6.2 g/dL (6.4-8.9); eGFR CKD-EPI 45.3 (>60)
[2022-09-14 07:48] LABS: Urine Appearance Clear; Urine Bilirubin Negative (Negative); Urine Blood Negative (Negative); Urine Color Yellow; Urine Glucose Negative (Negative); Urine Ketones Negative (Negative); Urine Nitrite Negative (Negative); Urine Protein Negative (Negative); Urine Specific Gravity 1.029 (1.002-1.030); Urine Urobilinogen Negative (Negative)
[2022-09-14] MEDS ORDERED: Senna/Docusate 8.6/50 mg (NF) TAB PO SCH (09:00)
[2022-09-14] MEDS: Senna TAB 8.6 mg TAB PO SCH (09:09)
[2022-09-14] MEDS: Venlafaxine XR 75 mg PO SCH (09:09)
[2022-09-14] MEDS: Docusate LIQ 100 MG/10 ML UDC PO SCH (09:10)
[2022-09-15 07:13] LABS: Hemoglobin 13.4 g/dL (11.5-14.3); Mean Corpuscular Hemoglobin 29.2 pg (27-33); Mean Corpuscular Hgb Conc 33.4 g/dL (31-36); Mean Corpuscular Volume 87.6 fL (80-97); Mean Platelet Volume 10.9 fL (7.5-11.2); Platelet Count 192 10^3/uL (150-450); Red Blood Count 4.57 10^6/uL (3.63-4.92); Red Cell Distribution Width 13.6 % (12-17); White Blood Count 8.3 10^3/uL (3.8-11.8)
[2022-09-15 07:20] LABS: Calcium 9.1 mg/dL (8.6-10.3); Creatinine, Serum 1.15 mg/dL (0.51-0.95); Magnesium 1.7 mg/dL (1.9-2.7); Potassium 4.4 mmol/L (3.5-5.0); eGFR CKD-EPI 45.5 (>60)
[2022-09-15] MEDS ORDERED: Magnesium Sulfate 2 gm BAG 2 GM/50 ML BAG IVPB ONE (07:27)
[2022-09-15] MEDS: Polyethylene Glycol 3350 17 GM PACKET PO SCH (08:28)
[2022-09-15] MEDS: Venlafaxine XR 75 mg PO SCH (08:28)
[2022-09-15] MEDS: Senna TAB 8.6 mg TAB PO SCH (08:28)
[2022-09-15] MEDS: Docusate LIQ 100 MG/10 ML UDC PO SCH (08:29)
[2022-09-15 09:27] LABS: ABS Basophils 0.1 10^3/uL (0.0-0.1); ABS Eosinophils 0.3 10^3/uL (0.0-0.5); ABS Lymphocytes 1.6 10^3/uL (1.0-4.8); ABS Monocytes 0.6 10^3/uL (0.0-0.9); ABS Neutrophils 5.6 10^3/uL (1.5-7.6); Eosinophil % 3.9 %; Lymphocyte % 19.2 %
[2022-09-16] MEDS: Docusate LIQ 100 MG/10 ML UDC PO SCH (09:43)
[2022-09-16] MEDS: Venlafaxine XR 75 mg PO SCH (09:43)
[2022-09-16] MEDS: Senna TAB 8.6 mg TAB PO SCH (09:43)
[2022-09-17] MEDS: Venlafaxine XR 75 mg PO SCH (09:30)
[2022-09-17] MEDS: Polyethylene Glycol 3350 17 GM PACKET PO SCH (09:31)
[2022-09-17] MEDS: Senna TAB 8.6 mg TAB PO SCH (09:31)
[2022-09-17] MEDS: Docusate LIQ 100 MG/10 ML UDC PO SCH (09:31)
[2022-09-18] MEDS: Senna TAB 8.6 mg TAB PO SCH (10:00)
[2022-09-18] MEDS: Docusate LIQ 100 MG/10 ML UDC PO SCH (10:01)
[2022-09-18] MEDS: Venlafaxine XR 75 mg PO SCH (10:01)
[2022-09-18 15:42] VITALS: BP 133/71
== END 2022-09-18 18:50 ==
LOC: ED 09:42 → EDHOLD 09:42 → SUATTDRO 22:13 → MED 09-14 00:49
PROVIDERS: ADMIT Internal Medicine; ATTEND Internal Medicine

== ENCOUNTER 2022-09-26 11:29 | Inpatient (IN) ==
[2022-09-26 16:59] LABS: Rapid COVID-19 Molecular Undetected (Undetected)
[2022-09-26 21:25] VITALS: BP 129/69
[2022-09-27] MEDS: Venlafaxine XR 75 mg PO SCH (08:44)
[2022-09-27] MEDS: Senna TAB 8.6 mg TAB PO SCH (08:44)
[2022-09-28] MEDS: Senna TAB 8.6 mg TAB PO SCH (08:07)
[2022-09-28] MEDS: Venlafaxine XR 75 mg PO SCH (08:07)
[2022-09-28] MEDS ORDERED: Polyethylene Glycol 3350 17 GM PACKET PO SCH (09:00)
== END 2022-09-28 10:30 | DRG 536 ==
LOC: MED 11:32 → SUATTDRO 11:32
PROVIDERS: ADMIT Physician Assistant; ATTEND Internal Medicine